=== PATIENT | male | born 1980 | race Caucasian/White ===

== ENCOUNTER 2016-10-08 08:38 | Emergency (ER) | payer OTHER ==
--- NOTE | ~2016-10-08 | CR63 ---
[facility] A Service of [facility] RADIOLOGY TEXT RESULTS PATIENT: VARSHA RAMSEY LOCATION: [facility] : 82 UNIT #: [id number] AGE: [address]: Bala Vera SEX: M ORDER DR: [id number] [facility] [address] [place], [place] [address] [id number] E MR#: [id number] Acc #: [id number] NAME: VARSHA RAMSEY : 1980 SEX: M STUDY DATE/TIME: 10/08/2016 09:11 UNIT: [facility] ROOM: STUDY DESCRIPTION: CR Chest 2 View Attending Physician: Bala Vera Ordering Physician: Ed Doctor [id number] [facility] Primary Care Physician: Primary Care Physician No MEDICAL IMAGING REPORT This report is preliminary unless electronic signature is present EXAM Chest 2 views, 10/08/2016 09:11 hours HISTORY 36-year-old man with complaint of 1-week history of cough, shortness of air and sinus pressure. COMPARISON 06/24/2016 FINDINGS Upright PA and 2 lateral views demonstrate normal cardiac, mediastinal and hilar contours. Lungs demonstrate benign calcified granulomata which are unchanged. There is no acute pulmonary density or pleural effusion. IMPRESSION No acute cardiopulmonary findings. Stable benign calcified granulomatous changes. Dictated by... Rika Mcguire M.D. THIS IS AN ELECTRONICALLY VERIFIED REPORT Rika Mcguire M.D. at 10/09/2016 8:58 AM Mirian TD: 10/08/2016 09:56 JOB #: [id number] MEDICAL IMAGING REPORT COPY
[~2016-10-08 08:38] MED LIST: FLEXERIL10 MG PO; PEN-VEE K PO; TYLOX 5-500 CA1 EACH PO; VICODIN PO
[2016-10-08 09:13] LABS: INFLUENZA A POS (NEG); INFLUENZA B NEG (NEG)
== END 2016-10-08 09:51 | disposition home or self-care (01) ==
LOC: CED 08:38
PROVIDERS: Nurse Practitioner
DX: J10.1 Influenza due to other identified influenza virus with other respiratory manifestations (principal)
CPT/HCPCS: 71020; 87651; 87804; 94640; 99283